=== PATIENT | female | born 1965 | race Caucasian/White ===

== ENCOUNTER → 2023-06-30 11:22 | Outpatient (REF) | payer OTHER, SELFPAY | LOC: HWRAD 11:22 | PROVIDERS: ATTENDING PHYSICIAN Family Medicine | DX: M25.531 Pain in right wrist (principal) | CPT/HCPCS: 73110; 73130 ==

== ENCOUNTER → 2023-11-07 13:41 | Outpatient (REF) | payer OTHER, SELFPAY | LOC: RAD 13:41 | PROVIDERS: ATTENDING PHYSICIAN Optometrist; FAMILY PHYSICIAN Family Medicine | DX: E11.9 Type 2 diabetes mellitus without complications (principal); Z79.84 Long term (current) use of oral hypoglycemic drugs; H43.813 Vitreous degeneration, bilateral; H25.13 Age-related nuclear cataract, bilateral | CPT/HCPCS: 93880 ==

== ENCOUNTER → 2023-11-27 11:02 | Outpatient (REF) | payer OTHER, SELFPAY | LOC: HWRAD 11:02 | PROVIDERS: ATTENDING PHYSICIAN Internal Medicine Rheumatology; FAMILY PHYSICIAN Family Medicine | DX: M05.79 Rheumatoid arthritis with rheumatoid factor of multiple sites without organ or systems involvement (principal); M25.539 Pain in unspecified wrist; M25.549 Pain in joints of unspecified hand | CPT/HCPCS: 73100; 73120 ==

== ENCOUNTER → 2023-12-25 06:25 | Day surgery (SDC) | payer OTHER, SELFPAY | LOC: GI 06:25 | PROVIDERS: ATTENDING PHYSICIAN Internal Medicine | DX: Z12.11 Encounter for screening for malignant neoplasm of colon (principal); K63.5 Polyp of colon; K64.8 Other hemorrhoids; Z86.010 Personal history of colon polyps | CPT/HCPCS: 45380; 88305 ==

== ENCOUNTER → 2024-01-06 16:07 | Outpatient (REF) | payer OTHER, SELFPAY | LOC: HWRAD 16:07 | PROVIDERS: ATTENDING PHYSICIAN Student in an Organized Health Care Education/Training Program | DX: M25.532 Pain in left wrist (principal) | CPT/HCPCS: 73110 ==

== ENCOUNTER → 2024-10-14 11:08 | Outpatient (REF) | payer OTHER, SELFPAY | LOC: WDC 11:08 | PROVIDERS: ATTENDING PHYSICIAN Obstetrics & Gynecology Gynecology; FAMILY PHYSICIAN Family Medicine | DX: Z12.31 Encounter for screening mammogram for malignant neoplasm of breast (principal) | CPT/HCPCS: 77063; 77067 ==

== ENCOUNTER → 2024-12-03 14:29 | Outpatient (REF) | payer OTHER, SELFPAY | LOC: RCS 14:29 | PROVIDERS: ATTENDING PHYSICIAN Student in an Organized Health Care Education/Training Program; FAMILY PHYSICIAN Family Medicine | DX: Z01.818 Encounter for other preprocedural examination (principal) | CPT/HCPCS: 93005 ==

== ENCOUNTER 2025-02-23 12:49 | Emergency (ER) | payer OTHER, SELFPAY ==
[2025-02-23 12:51] VITALS: BP 169/95
[2025-02-23 13:19] LABS: Hematocrit 43.7 % (37.0-47.0); Hemoglobin 14.6 g/dL (12.0-16.0); Mean Corp Hgb Conc. 33.4 g/dL (33.0-37.0); Mean Corpuscular Volume 90.7 fL (81.0-99.0); Nucleated Red Blood Cells % 0 %; Platelet Count 346 10^3/uL (130-400); Red Cell Dist. Width 12.9 % (11.5-14.5)
[2025-02-23 13:34] LABS: ALT (SGPT) 23 U/L (0-35); AST (SGOT) 20 U/L (14-36); Albumin 4.0 g/dl (3.5-5.0); Alkaline Phosphatase 91 U/L (38-126); Blood Urea Nitrogen 13 mg/dl (7-17); Calcium 9.4 mg/dl (8.4-10.2); Carbon Dioxide 22 mmol/L (22-30); Chloride 106 mmol/L (98-107); Glucose 179 mg/dl (70-99); Potassium 4.5 mmol/L (3.5-5.1); Sodium 139 mmol/L (135-145); Total Protein 7.7 g/dl (6.3-8.2); eGFR > 60.00
--- NOTE | 2025-02-23 14:37 | ED.GENMED ---
History of Present Illness
General
Chief Complaint: Dizziness
Source: patient
Exam Limitations: none
Time Seen by Provider: 02/23/25 14:27
History of Present Illness
History of Present Illness:
See MDM
Past History
Past History
ED Past Medical History: Other (History of kidney stone, ovarian cysts, stress incontinence, rheumatoid arthritis and, and bronchiolitis)
ED Past Surgical History: , Gynecological (Right oophorectomy) and Other (2 surgeries on left shoulder and 2011)
Patient has exhibited threatening behavior?: No
PSI?: No
Social History
Tobacco: Non-smoker
Alcohol: None
Drug: None
Personal:
Living: with family
Employment: Employed
Family History
Family History: Other (No history of SAH)
Phy Exam
Physical Exam
Physical Exam:
See MDM
Course
Orders/Labs/Results
Orders:
Orders
02/23/25 13:02
Complete Blood Count/With Diff Urgent
Comprehensive Metabolic Panel Urgent
02/23/25 14:36
CT Head W/o Iv Contrast Urgent
Comment:
Reason For Exam: dizzy, headache
0.9% Sodium Chloride 1000 ml [Nss] 1,000 ml IV BOLUS
Ondansetron Injectable [Zofran] 4 mg IV NOW STA
diazePAM [Valium Injection] 2 mg IV NOW STA
02/23/25 17:33
Amoxicillin [Amoxil] 500 mg PO NOW STA
Dexamethasone Sod Phosphate [Decadron] 10 mg IV NOW STA
Abnormal Lab Results
02/23/25
13:02
WBC 12.1 H 10^3/uL
(4.8-10.8)
Abs Immat Gran (auto) 0.1 H 10^3/uL
(0-0.05)
Absolute Neuts (auto) 9.0 H 10^3/uL
(1.4-6.5)
Absolute Monos (auto) 0.7 H 10^3/uL
(0.1-0.6)
Immature Gran % 0.7 H %
(0-0.5)
Lymphocytes % 17.8 L %
(20.5-51.1)
Glucose 179 H mg/dl
(70-99)
02/23/25 13:02
02/23/25 13:02
Vital Signs
Initial and Last Documented VS:
Initial Vital Signs
Pulse Resp BP Pulse Ox
82 22 169/95 98
02/23/25 12:51 02/23/25 12:51 02/23/25 12:51 02/23/25 12:51
Last Documented Vital Signs
Pulse Resp BP Pulse Ox
71 13 169/95 97
02/23/25 14:45 02/23/25 14:45 02/23/25 12:51 02/23/25 14:45
MDM/Problems Addressed
Differential Diagnosis Includes:
Note:
CHIEF COMPLAINT(S)
Vertigo.
HISTORY OF PRESENT ILLNESS
The patient is a 59-year-old female with a recurrent history of vertigo, presenting today with what she describes as the worst episode experienced. The vertigo onset occurred this morning and is primarily aggravated by head movement, especially
turning to the left. She reports previous episodes of vertigo, treated symptomatically with medication, though she has not taken any for this episode. No recent upper respiratory infections. The patient describes a family history of similar symptoms
affecting her brother and sister. Consideration of benign paroxysmal positional vertigo (BPPV) is noted due to the episodic and positional nature of symptoms. There is also mention of potential ear fluid contributing to symptoms.
PAST MEDICAL AND SURGICAL HISTORY
Foot reconstruction surgery on December 30.
PHYSICAL EXAM
General: Alert, no acute distress.
Skin: Warm, dry.
Head: Normocephalic, atraumatic
Neck: Appears supple, trachea midline.
Eyes, Ears, Nose, Mouth, and Throat: Moist mucous membranes. TMs pale and bulging
Cardiovascular: No signs of cyanosis
Respiratory: Respirations are non-labored.
Abdomen: Non-distended
Musculoskeletal: No deformities
Neurological: No focal neurological deficit observed. Normal finger-nose bilaterally. Reproducible symptoms when head is moved to the left
Psychiatric: Cooperative, appropriate mood and affect.
DIFFERENTIAL DIAGNOSIS
The Differential Diagnosis includes, in no particular order and is not limited to:
- Benign paroxysmal positional vertigo (BPPV)
- Menieres disease
- Vestibular neuritis
- Labyrinthitis
- Acute otitis media
- Allergic reaction affecting middle ear
- Earwax blockage
- Central vertigo from stroke or other BASEBALL HAND SEWER lesions
- Migraine-associated vertigo
- Acoustic neuroma
SUMMARY OF ENCOUNTER
The patient presented with acute vertigo, worse than her recurrent episodes. Examination and history pointed towards BPPV, with typical triggering by head movements. There is a family history of similar episodes. The examination aimed to rule out
central causes, such as stroke, using coordination tests.
PLAN
- Administer anti-nausea medication through IV.
- Obtain a CT scan to evaluate for any acute intracranial pathology.
- Discuss the possibility of an MRI as an outpatient follow-up for detailed evaluation if symptoms persist or if CT findings are non-contributory.
- Provide intravenous fluids and monitor closely.
MEDICATION RECONCILIATION
Administered anti-nausea medication through IV to alleviate symptoms of nausea and vomiting associated with vertigo.
MEDICAL DECISION MAKING
- Number and Complexity of Problems Addressed:
Chronic conditions affecting care include history of vertigo.
- Data:
- Category 1: Tests and documents (Lab tests reviewed, including blood sugar noted as slightly elevated)
- My independent interpretation of the need for CT scan for further evaluation.
- Category 3: Discussion of management with other healthcare provider (not explicitly mentioned).
- Risk:
Prescription medication was prescribed for nausea.
DIAGNOSIS
Benign Paroxysmal Positional Vertigo (BPPV) (ICD-10: H81.1)
Menieres disease (ICD-10: H81.0) (consideration based on patients history and symptoms)
SUMMARY OF ENCOUNTER
The patient, a 59-year-old female, presented with acute vertigo. Her vertigo is characterized by episodes primarily aggravated by head movement. This episode is notably worse than previous ones. Considering her family history of brain tumors causing
vertigo, a CT scan was ordered, which returned negative for any acute intracranial pathology. There were findings suggestive of sinusitis upon physical examination, which could potentially contribute to her symptoms.
EMERGENCY TREATMENTS ADMINISTERED
The patient was administered diazepam for symptom control of vertigo and dexamethasone for suspected sinusitis.
PLAN
The patient will be given amoxicillin to address sinusitis. Outpatient follow-up with an MRI is planned to further evaluate the cause of vertigo, given the family history of brain tumors.
INDEPENDENT REVIEW OF LABS AND INTERPRETATION OF TESTS
My independent interpretation of the CT scan reveals no acute intracranial pathology.
MEDICATION RECONCILIATION
- Diazepam (Valium) administered for vertigo management.
- Dexamethasone administered for sinusitis.
- Prescribed amoxicillin for sinusitis.
MEDICAL DECISION MAKING
- Number and Complexity of Problems Addressed: Chronic conditions affecting care include a recurrent history of vertigo.
- Data:
- Category 1: CT scan ordered and independently interpreted, revealing no acute intracranial pathology.
- Category 3: Discussion with the patient about the findings of the CT scan and the need for an outpatient MRI for further evaluation.
- Risk: Prescription medication was prescribed for nausea associated with vertigo, and the decision to perform a CT scan was made considering the family history of brain tumors.
DIAGNOSIS
- Benign Paroxysmal Positional Vertigo (BPPV) (ICD-10: H81.1)
- Acute Sinusitis (ICD-10: J01.90)
*Pulse Oximetry
SaO2: 98
Oxygen Mode of Delivery: Room air
Patient hypoxic: no
*Critical Care Note
Total Time (30-74mins, 75-104mins- exclusive of procedures): Not Applicable
ED Attending Note
-
Portions of this chart may have been created with voice recognition software.� Occasional wrong word or��sound alike� substitutions may have occurred due to the inherent limitations of voice recognition software.
Discharge Plan
Departure
Patient Disposition: Home (Routine Discharge)
Date of Disposition: 02/23/25
Time of Disposition: 17:35
Patient with high blood pressure during this ER visit?: Yes
Discharge Problem:
Vertigo
Instructions: Vertigo (a Type of Dizziness) (DC)
Prescriptions:
New
ondansetron 4 mg Tablet,Disintegrating
4 mg PO BIDPRN PRN (Reason: nausea/vomiting) Qty: 10 0RF
meclizine [Antivert] 25 mg Tablet,Chewable
25 mg PO BIDPRN PRN (Reason: nausea or vertigo) Qty: 14 0RF
amoxicillin 500 mg capsule
500 mg PO BID Qty: 14 0RF
No Action
methotrexate sodium 2.5 mg Tablet
17.5 mg PO QWEEK
Rx Instructions:
Tuesdays
Humira Pen 40 mg/0.8 mL Pen Injector Kit
40 mg SC WEEKLY
Rx Instructions:
TUESDAYS
Referrals:
Jennifer Gaytan DO [Family Provider, Family Practice]
Activity Restrictions/Additional Instructions:
Please return for any worsening symptoms.
You may return at any time if you have further concerns.
Please follow up with your doctor at the first available appointment, preferably this week. Please talk about an MRI if symptoms persist.
Thank you for choosing [facility].
Interventions
Interventions:
*Risk Screen - Suicide Last Done: 02/23/25 15:10
*General Assessment Last Done: 02/23/25 15:10
*Neglect/Abuse Screening Last Done: 02/23/25 15:10
*ED- Fall Risk Assessment Last Done: 02/23/25 15:10
*ED COVID-19 Vaccine History Last Done: 02/23/25 15:10
*ED Influenza Vaccine History Last Done: 02/23/25 15:10
ED- Cardiac Assessment Last Done: 02/23/25 15:10
ED- Neurological Assessment Last Done: 02/23/25 15:10
Discharge Date and Time
Print Language: PORTUGUESE
[2025-02-23 15:00] VITALS: BP 130/94
[2025-02-23 15:10] VITALS: BMI 39.2
[2025-02-23] MEDS: NSS 1000 IV (15:17)
[2025-02-23] MEDS: VALIUM INJECTION 2 MG IV (15:19)
[2025-02-23] MEDS: ZOFRAN 4 MG IV (15:19)
[2025-02-23 16:00] VITALS: BP 140/63
[2025-02-23 17:12] VITALS: BP 128/84
[2025-02-23] MEDS: AMOXIL 500 MG PO (17:50)
[2025-02-23] MEDS: DECADRON 10 MG IV (17:51)
== END 2025-02-23 18:11 | disposition home or self-care (01) ==
LOC: EMR 12:49
PROVIDERS: Emergency Medicine; EMERGENCY PHYSICIAN Student in an Organized Health Care Education/Training Program; FAMILY PHYSICIAN Family Medicine
DX: R42 Dizziness and giddiness (principal); R03.0 Elevated blood-pressure reading, without diagnosis of hypertension; M06.9 Rheumatoid arthritis, unspecified; N39.3 Stress incontinence (female) (male)
CPT/HCPCS: 99284; 96374; 96375 ×2; 96361; 70450; 80053; 85025